=== PATIENT | male | born 1975 | race Caucasian/White ===

== ENCOUNTER 2020-08-11 15:28 | Emergency (ER) | payer OTHER ==
[2020-08-11 17:10] LABS: HEMOGLOBIN 16.2 gm/dl (14.0-17.5); RED BLOOD COUNT 5.35 M/UL (4.20-5.50); WHITE BLOOD COUNT 7.1 K/UL (4.5-11.0)
[2020-08-11 17:45] LABS: BUN/CREATININE RATIO 13 (0-10)
[2020-08-11] MEDS ORDERED: TORADOL 10 MG T10 MG PO (19:12)
== END 2020-08-11 20:07 | disposition home or self-care (01) ==
LOC: ER1 15:28
DX: N23 Unspecified renal colic (principal); Z87.442 Personal history of urinary calculi
CPT/HCPCS: 80053; 81001; 85025; 96374; 96375; 99284; J1885; J2405; J7030